=== PATIENT | female | born 1975 | race Caucasian/White ===

== ENCOUNTER → 2017-03-10 | Outpatient (CLI) | payer OTHER ==
[~2017-03-10] MED LIST: BACTRIM DS 8001 TA1 PO; CIPRO250 MG PO; CYCLOBENZAPRINE5 MG PO; LEVOFLOXACIN500 MG PO; METFORMIN500 MG PO; MOTRIN800 MG PO; NEXIUM40 MG PO; NKHM; PNV-SELECT1 TAB PO; TOBRADEX 0.1%-0.5 ML OT; [UNRECOGNIZED DRUG - OTHER] OP
== END | disposition home or self-care (01) ==
LOC: RESCLI 10:47
DX: H90.3 Sensorineural hearing loss, bilateral (principal); H71.02 Cholesteatoma of attic, left ear; M19.90 Unspecified osteoarthritis, unspecified site; E66.01 Morbid (severe) obesity due to excess calories; J06.9 Acute upper respiratory infection, unspecified; B97.89 Other viral agents as the cause of diseases classified elsewhere

== ENCOUNTER → 2022-04-01 | Day surgery (SDC) | payer OTHER ==
[~2022-04-01] VITALS: Ht 157.4 cm; Wt 113.4 kg
[~2022-04-01] MED LIST changes: +MELOXICAM10 MG PO; +OFLOXACIN OTIC5 ML OPH
[2022-04-01 07:10] VITALS: BP 126/76
[2022-04-01 08:38] VITALS: BP 115/74
[2022-04-01 08:53] VITALS: BP 110/77
[2022-04-01 09:08] VITALS: BP 124/87
== END | disposition home or self-care (01) ==
LOC: SDC 03-20 11:00
PROVIDERS: ATTEND Specialist
DX: H65.493 Other chronic nonsuppurative otitis media, bilateral (principal)

== ENCOUNTER → 2022-11-16 | Day surgery (SDC) | payer OTHER ==
[~2022-11-16] VITALS: Ht 155 cm; Wt 127.0 kg
[~2022-11-16] MED LIST changes: +OCUFLOX 0.3% 5 M5 ML OPH
[2022-11-16 12:26] VITALS: BP 137/92
[2022-11-16 13:44] VITALS: BP 128/74
[2022-11-16 14:00] VITALS: BP 128/92
[2022-11-16 14:15] VITALS: BP 123/92
== END ==
LOC: SDC 11-12 09:30
PROVIDERS: ATTEND Specialist
DX: H65.493 Other chronic nonsuppurative otitis media, bilateral (principal); Z96.22 Myringotomy tube(s) status; Z79.899 Other long term (current) drug therapy; Z90.49 Acquired absence of other specified parts of digestive tract; Z98.890 Other specified postprocedural states

== ENCOUNTER 2023-11-15 10:44 | Emergency (ER) | payer OTHER ==
[~2023-11-15] VITALS: Ht 154.9 cm; Wt 122.5 kg
[2023-11-15] MEDS ORDERED: Acetaminophen/Hydrocodone 5 MG/325 MG TABLET PO ONE (11:05)
[2023-11-15] MEDS ORDERED: NAPROSYN500 MG PO (11:29)
[2023-11-15] MEDS ORDERED: NAPROXEN 250 MG TAB PO ONE (11:30)
== END 2023-11-15 11:48 | disposition home or self-care (01) ==
LOC: ED 10:44
DX: S86.911A Strain of unspecified muscle(s) and tendon(s) at lower leg level, right leg, initial encounter (principal); E11.9 Type 2 diabetes mellitus without complications; Z90.49 Acquired absence of other specified parts of digestive tract; Z98.890 Other specified postprocedural states; X58.XXXA Exposure to other specified factors, initial encounter; Y93.89 Activity, other specified; Y92.89 Other specified places as the place of occurrence of the external cause; Y99.8 Other external cause status

== ENCOUNTER → 2024-01-05 | Outpatient (CLI) | payer OTHER ==
[~2024-01-05] MED LIST changes: +NAPROSYN500 MG PO
[2024-01-05 10:06] LABS: BASO # 0.1 10*3/uL (0.0-0.1); BASO % 1.1 % (0.0-1.0); EOS # 0.3 10*3/uL (0.0-0.4); EOS % 3.2 % (1.0-4.0); HEMATOCRIT 42.1 % (37.0-47.0); LYMPH # 2.7 10*3/uL (1.3-4.4); LYMPH % 31.5 % (27.0-41.0); MEAN CELL VOLUME 88.6 fl (81.0-99.0); MEAN CORPUSCULAR HGB 29.9 pg (27.0-31.0); MEAN CORPUSCULAR HGB CONC 33.7 g/dl (33.0-37.0); MEAN PLATELET VOLUME 8.5 fl (9.6-12.3); MONO # 0.8 10*3/uL (0.1-1.0); MONO % 9.5 % (3.0-9.0); NEUT # 4.6 10*3/uL (2.3-7.9); NEUT % 54.3 % (47.0-73.0); PLATELET COUNT AUTOMATED 281 10*3/uL (130-400); RED BLOOD COUNT 4.75 10*6/uL (4.10-5.10); RED CELL DISTRI WIDTH 12.5 % (0-14.5); WHITE BLOOD COUNT 8.5 10*3/uL (4.8-10.8)
[2024-01-05 10:43] LABS: ALKALINE PHOSPHATASE 84 U/L (46-116); BUN 13 mg/dl (9-23); CHLORIDE 103 mmol/L (98-107); CHOLESTEROL 133 mg/dL (<200); LDL CHOLESTEROL 75 mg/dL (9-159); POTASSIUM 4.2 mmol/L (3.4-5.1); SGPT/ALT 15 U/L (5-49); TOTAL PROTEIN 7.2 gm/dL (6.0-8.0); TRIGLYCERIDES 128 mg/dl (<150)
== END | disposition home or self-care (01) ==
LOC: LAB 09:40
PROVIDERS: ATTEND Emergency Medicine
DX: E11.65 Type 2 diabetes mellitus with hyperglycemia (principal); M13.871 Other specified arthritis, right ankle and foot; E78.1 Pure hyperglyceridemia; E66.9 Obesity, unspecified